=== PATIENT | female | born 1950 | race Two or more races ===

== ENCOUNTER 2022-04-03 04:17 | Day surgery (SDC) | payer OTHER ==
[2022-04-02 17:35] VITALS: BMI 29.2
[2022-04-03] MEDS ORDERED: PROPOFOL 20 ML ONE ×3 (14:03→17:20)
[2022-04-03] MEDS ORDERED: LIDOCAINE HCL/PF 2% SDV 5ML VIAL ONE (14:03)
[2022-04-03] MEDS ORDERED: MIDAZOLAM HCL 2 MG/2 ML SINGLE DOSE VIAL ONE (14:03)
[2022-04-03] MEDS ORDERED: ceFAZolin SODIUM 1 GM VIAL ONE (14:07)
[2022-04-03] MEDS ORDERED: LIDOCAINE HCL 1%, 10 MG/ML (20ML VIAL) ONE (14:18)
[2022-04-03] MEDS ORDERED: BUPIVACAINE HCL/PF 0.5% (5MG/ML) 10 ML VIAL ONE (14:19)
[2022-04-03] MEDS ORDERED: ceFAZolin SODIUM 1 GM VIAL IVPB ONE (15:52)
[2022-04-03] MEDS ORDERED: ONDANSETRON 4 MG/2 ML VIAL ONE (15:55)
[2022-04-03] MEDS ORDERED: METOCLOPRAMIDE HCL INJECTION 10 MG/2 ML VIAL ONE (15:55)
[2022-04-03] MEDS ORDERED: LIDOCAINE HCL 1%, 10 MG/ML (20ML VIAL) INF ONE (15:58)
[2022-04-03] MEDS ORDERED: BUPIVACAINE HCL/PF 0.5% (5MG/ML) 10 ML VIAL IJ ONE (15:58)
[2022-04-03] MEDS ORDERED: FENTANYL CITRATE/PF 50 MCG/ML VIAL ONE ×3 (18:02→18:19)
[2022-04-03] MEDS ORDERED: PROMETHAZINE HCL 25 MG/1 ML VIAL IVPUSH PRN (18:03)
[2022-04-03] MEDS ORDERED: oxyCODONE HCL 5 MG TABLET PO PRN ×2 (18:03)
[2022-04-03] MEDS ORDERED: ONDANSETRON 4 MG/2 ML VIAL IVPUSH PRN (18:03)
[2022-04-03] MEDS ORDERED: LACTATED RINGERS SOLUTION 1,000 ML IV SCH (18:15)
[2022-04-03] MEDS ORDERED: oxyCODONE HCL 5 MG TABLET ONE (19:09)
[2022-04-03 20:07] VITALS: RESP 20; TEMP 97.6
[2022-04-03 20:10] VITALS: BP 125/81; PULSE 71
== END 2022-04-03 19:43 | disposition home or self-care (01) ==
LOC: JASU-SURG 04:17
PROVIDERS: ATTEND Podiatrist Foot & Ankle Surgery
PROC: 0SQP0ZZ Repair Right Toe Phalangeal Joint, Open Approach (ICD-10-PCS; 2022-04-03)
PROC: 0SGM04Z Fusion of Right Metatarsal-Phalangeal Joint with Internal Fixation Device, Open Approach (ICD-10-PCS; principal; 2022-04-03 13:30)
DX: M20.41 Other hammer toe(s) (acquired), right foot (principal); M20.21 Hallux rigidus, right foot
CPT/HCPCS: 28240; 28285; 28750; C1713; 73630-TC-RT-FY; 88307-TC; 88311-TC; 94760

== ENCOUNTER 2022-09-03 04:02 | Day surgery (SDC) | payer OTHER ==
[2022-09-01 13:10] VITALS: BMI 27.6
[~2022-09-03 04:02] MED LIST: BUPIVACAINE HCL/PF 0.5% (5MG/ML) 10 ML VIAL IJ ONE; LIDOCAINE HCL 1%, 10 MG/ML (20ML VIAL) NR ONE
[2022-09-03] MEDS ORDERED: LIDOCAINE HCL 1%, 10 MG/ML (10ML VIAL) MDV ONE (07:17)
[2022-09-03] MEDS ORDERED: BUPIVACAINE HCL/PF 0.5% (5MG/ML) 10 ML VIAL ONE (07:18)
[2022-09-03] MEDS ORDERED: PROPOFOL 40 ML ONE (07:34)
[2022-09-03] MEDS ORDERED: MIDAZOLAM HCL 2 MG/2 ML SINGLE DOSE VIAL ONE (07:35)
[2022-09-03] MEDS ORDERED: oxyCODONE HCL 5 MG TABLET PO PRN (08:06)
[2022-09-03] MEDS ORDERED: PROMETHAZINE HCL 25 MG/1 ML VIAL IVPB PRN (08:06)
[2022-09-03] MEDS ORDERED: ONDANSETRON 4 MG/2 ML VIAL IVPUSH PRN (08:06)
[2022-09-03] MEDS ORDERED: LACTATED RINGERS SOLUTION 1,000 ML IV SCH (08:15)
[2022-09-03] MEDS ORDERED: ceFAZolin SODIUM 1 GM VIAL ONE (08:22)
[2022-09-03] MEDS ORDERED: ceFAZolin SODIUM 1 GM VIAL IVPB ONE (08:23)
[2022-09-03] MEDS ORDERED: LIDOCAINE HCL 1%, 10 MG/ML (20ML VIAL) NR ONE (08:24)
[2022-09-03] MEDS ORDERED: BUPIVACAINE HCL/PF 0.5% (5MG/ML) 10 ML VIAL IJ ONE ×2 (08:24)
[2022-09-03] MEDS ORDERED: PROPOFOL 20 ML ONE (09:48)
[2022-09-03] MEDS ORDERED: ACETAMINOPHEN INJECTION 100 ML IVPB ONE (11:59)
[2022-09-03] MEDS ORDERED: oxyCODONE HCL 5 MG TABLET ONE (12:31)
[2022-09-03] MEDS ORDERED: ACETAMINOPHEN 1000 MG/100 ML BAG IVPB ONE (12:32)
[2022-09-03] MEDS ORDERED: PREGABALIN 100 MG CAPSULE PO ONE (13:23)
[2022-09-03] MEDS ORDERED: oxyCODONE HCL 5 MG TABLET PO ONE (13:24)
[2022-09-03 14:00] VITALS: BP 100/65; PULSE 74; TEMP 97
[2022-09-03 16:57] VITALS: RESP 16
== END 2022-09-03 14:45 | disposition home or self-care (01) ==
LOC: JASU-SURG 04:02
PROVIDERS: ATTEND Podiatrist Foot & Ankle Surgery
PROC: 0SGN04Z Fusion of Left Metatarsal-Phalangeal Joint with Internal Fixation Device, Open Approach (ICD-10-PCS; 2022-09-03)
PROC: 0SGN04Z Fusion of Left Metatarsal-Phalangeal Joint with Internal Fixation Device, Open Approach (ICD-10-PCS; principal; 2022-09-03 08:00)
DX: M20.22 Hallux rigidus, left foot (principal); M20.42 Other hammer toe(s) (acquired), left foot
CPT/HCPCS: 28285; 28750; C1713; 73610-TC-LT-FY; 73630-TC-LT; 76000-TC-FY; 88305-TC; 88311-TC; 94760; 97116-GP